=== PATIENT | male | born 1975 | race Caucasian/White ===

== ENCOUNTER 2019-10-28 16:22 | Inpatient (IN) ==
[2019-10-28 16:53] LABS: Bilirubin,Urine Negative (Negative); Blood,Urine Trace-intact (Negative); Clarity,Urine Clear (Clear); Color,Urine Yellow (Yellow); Glucose,Urine (UA) Normal (Normal); Ketones,Urine Negative (Negative); Leukocyte Esterase,Urine Negative (Negative); Nitrite,Urine Negative (Negative); Protein,Urine Negative (Neg-Trace); Specific Gravity,Urine 1.025 (1.010-1.025); Urobilinogen,Urine Normal (Normal)
[2019-10-28 17:10] LABS: Amphetamine Screen,Urine Negative ng/mL (Cutoff=1000); Barbiturate Screen,Urine Negative ng/mL (Cutoff=200); Benzodiazepines Screen,Urine Negative ng/mL (Cutoff=200); Cannabinoid Screen,Urine Negative ng/mL (Cutoff = 50); Cocaine Screen,Urine Negative ng/mL (Cutoff= 300); Opiate Screen,Urine Positive ng/mL (Cutoff=300); Phencyclidine Screen,Urine Negative ng/mL (Cutoff=25)
[2019-10-28] MEDS ORDERED: *HR* OxyCODONE/APAP 7.5/325 TABLET PO STA (17:15)
[2019-10-28] MEDS ORDERED: ALPRAZolam 0.5 MG TABLET PO ONE (17:15)
[2019-10-28 17:21] LABS: Bacteria,Urine None Seen per hpf (None-Few); Hyaline Casts,Urine None Seen per lpf (None-Few); RBC,Urine 0-3 per hpf (0-3); Squamous Epithelial Cell,Urine None Seen per lpf (None-Few); WBC,Urine 0-3 per hpf (0-3)
[2019-10-28 17:29] LABS: Basophils % 0.3 %; Eosinophils # 0.1 K/mcL (0.0-0.6); Eosinophils % 0.9 %; Hematocrit 39.9 % (37.5-50.1); Hemoglobin 13.1 g/dL (12.9-16.9); Immature Granulocytes % 0.8 % (0-4); Lymphocytes # 1.3 K/mcL (0.6-4.6); Lymphocytes % 13.2 %; Mean Corpuscular HGB Conc 32.8 g/dL (31.6-35.5); Mean Corpuscular Volume 88.3 fL (83.0-100.0); Mean Platelet Volume 10.6 fL (9.4-12.4); Monocytes # 0.7 K/mcL (0.0-1.3); Monocytes % 7.6 %; Neutrophils # 7.5 K/mcL (1.6-8.9); Platelet Count 224 K/mcL (140-400); Red Blood Count 4.52 M/mcL (4.19-5.50); Red Cell Distribution Width 13.7 % (11.5-14.5); Segmented Neutrophils % 77.2 %; White Blood Count 9.8 K/mcL (4.3-11.1)
[2019-10-28 17:34] LABS: Acetaminophen < 10 mcg/mL (10-20); BUN/Creatinine Ratio 30 (6-26); Blood Urea Nitrogen 27 mg/dL (6-20); Calcium 9.9 mg/dL (8.6-10.3); Carbon Dioxide 22 mEq/L (23-29); Chloride 107 mEq/L (98-107); Ethanol < 10 mg/dL (Less than 10); Glucose 125 mg/dL (70-105); Osmolality,Calculated 295 (280-300); Potassium 3.9 mEq/L (3.5-5.1); Salicylate < 2.5 mg/dL (15.0-30.0); Sodium 139 mEq/L (136-145); eGFR For African Americans > 60 (> 60); eGFR For Non-African Americans > 60 (> 60)
[2019-10-28] MEDS ORDERED: Ibuprofen 400 MG TABLET PO PRN (18:53)
[2019-10-28] MEDS ORDERED: MOM Conc 10 ML UD.LIQ PO PRN (18:53)
[2019-10-28] MEDS ORDERED: Mag Hydrox/Al Hydrox/Simeth 30 ML UDC PO PRN (18:53)
[2019-10-28] MEDS ORDERED: *HR* LORazepam 2 MG/ML VIAL IM PRN (18:53)
[2019-10-28] MEDS ORDERED: Haloperidol Lactate 5 MG/ML VIAL IM PRN (18:53)
[2019-10-28] MEDS ORDERED: *HR* LORazepam 1 MG TABLET PO PRN (18:53)
[2019-10-28] MEDS: traZODone 50 MG TABLET PO PRN (21:13)
[2019-10-28] MEDS: hydrOXYzine pamoate 25 MG CAPSULE PO PRN (21:13)
[2019-10-29] MEDS ORDERED: *HR* OxyCODONE/APAP 7.5/325 TABLET PO ONE (09:45)
[2019-10-29] MEDS: diazePAM 10 MG TABLET PO PRN ×2 (10:19→19:08)
[2019-10-29] MEDS: Lisinopril 20 MG TABLET PO SCH (11:29)
[2019-10-29] MEDS: *HR* OxyCODONE/APAP 7.5/325 TABLET PO PRN ×3 (14:45→23:09)
[2019-10-29] MEDS: hydrOXYzine pamoate 25 MG CAPSULE PO PRN (20:21)
[2019-10-29] MEDS: traZODone 50 MG TABLET PO PRN (20:22)
[2019-10-30] MEDS: Lisinopril 20 MG TABLET PO SCH (08:26)
[2019-10-30] MEDS: diazePAM 10 MG TABLET PO PRN ×2 (08:29→21:04)
[2019-10-30] MEDS: *HR* OxyCODONE/APAP 7.5/325 TABLET PO PRN ×4 (08:30→21:03)
[2019-10-30] MEDS: traZODone 50 MG TABLET PO PRN (21:05)
[2019-10-31] MEDS: diazePAM 10 MG TABLET PO PRN ×2 (08:44→21:05)
[2019-10-31] MEDS: *HR* OxyCODONE/APAP 7.5/325 TABLET PO PRN ×4 (08:45→21:05)
[2019-10-31] MEDS: Lisinopril 20 MG TABLET PO SCH (08:46)
[2019-10-31] MEDS: traZODone 50 MG TABLET PO PRN (21:05)
[2019-11-01] MEDS: diazePAM 10 MG TABLET PO PRN (07:41)
[2019-11-01] MEDS: *HR* OxyCODONE/APAP 7.5/325 TABLET PO PRN (07:41)
[2019-11-01 08:40] VITALS: BP 147/81
[2019-11-01] MEDS: Lisinopril 20 MG TABLET PO SCH (08:58)
== END 2019-11-01 09:53 | disposition home or self-care (01) | DRG 881 ==
LOC: EMEROOARM 16:22 → 1ANU 18:34
PROVIDERS: ADMIT Psychiatry & Neurology Psychiatry; ATTEND Psychiatry & Neurology Psychiatry